=== PATIENT | female | born 2000 | race Caucasian/White ===

== ENCOUNTER 2020-05-17 01:45 | Emergency (ER) | payer OTHER, MEDICAID ==
[~2020-05-17] VITALS: Ht 167.6 cm; Wt 86.2 kg
[~2020-05-17 01:45] MED LIST: ACETAMINOPHEN-1 EAC1 PO; LEVOTHYROXIN0.088 MG PO; METFORMIN HCL500 MG PO
[2020-05-17 02:34] VITALS: BP 139/85
== END 2020-05-17 02:34 | disposition home or self-care (01) ==
LOC: M.ERS 01:45
DX: U07.1 COVID-19 (principal); E11.9 Type 2 diabetes mellitus without complications; E03.9 Hypothyroidism, unspecified

== ENCOUNTER 2020-09-15 13:32 | Emergency (ER) | payer OTHER, MEDICAID ==
[~2020-09-15] VITALS: Ht 170.2 cm; Wt 86.2 kg
[2020-09-15] MEDS ORDERED: AMOXIL 875 MG875 M1 PO (14:28)
[2020-09-15 14:39] VITALS: BP 111/70
== END 2020-09-15 14:40 | disposition home or self-care (01) ==
LOC: M.ERS 13:32
DX: J02.0 Streptococcal pharyngitis (principal); Z20.822 Contact with and (suspected) exposure to COVID-19; E11.9 Type 2 diabetes mellitus without complications; E03.9 Hypothyroidism, unspecified

== ENCOUNTER → 2021-01-06 | Emergency (ER) | payer OTHER, MEDICAID ==
[~2021-01-06] VITALS: Ht 167.6 cm; Wt 81.7 kg
[~2021-01-06] MED LIST changes: +AMOXIL 875 MG875 M1 PO
[2021-01-06 10:10] VITALS: BP 133/85
== END ==
LOC: M.ERS 09:14
DX: Z20.822 Contact with and (suspected) exposure to COVID-19 (principal); E11.9 Type 2 diabetes mellitus without complications; E03.9 Hypothyroidism, unspecified